=== PATIENT | female | born 1975 | race Caucasian/White ===

== ENCOUNTER 2021-12-25 17:35 | Outpatient (CLI) | payer OTHER, BC, SELFPAY | END 2021-12-25 17:36 | disposition home or self-care (01) | LOC: LKVREF 17:35 | PROVIDERS: PCP Physician Assistant Medical; Visit Provider Physician Assistant Medical | DX: Z00.00 Encounter for general adult medical examination without abnormal findings (principal); E78.5 Hyperlipidemia, unspecified; E03.9 Hypothyroidism, unspecified | CPT/HCPCS: 87624 ==

== ENCOUNTER 2021-12-29 08:52 | Outpatient (CLI) | payer OTHER, BC, SELFPAY ==
[2021-12-29 12:11] LABS: Albumin* 4.3 g/dL (3.3-5.0); Chloride* 105 mmol/L (96-114)
[2021-12-29 12:12] LABS: Potassium* 4.4 mmol/L (3.6-5.1); Sodium* 137 mmol/L (135-149)
[2021-12-29 12:14] LABS: Aspartate Amino Transferase* 22 U/L (12-35); Bilirubin Total* 0.6 mg/dL (0.1-1.5); Carbon Dioxide* 24 mmol/L (20-32); Creatinine* 0.6 mg/dL (0.5-1.5); Estimated Glomerular Filt Rate 111 ml/min; Total Protein* 7.2 g/dL (6.0-8.3)
[2021-12-29 12:15] LABS: Alanine Aminotransferase* 9 U/L (4-35); Alkaline Phosphatase* 55 U/L (40-150); Blood Urea Nitrogen* 10 mg/dL (5-24); Calcium* 9.5 mg/dL (8.4-10.6); Glucose* 96 mg/dL (60-115)
== END 2021-12-29 08:53 | disposition home or self-care (01) ==
LOC: LKVLAB 08:53
PROVIDERS: PCP Physician Assistant Medical; Visit Provider Physician Assistant Medical
DX: Z00.00 Encounter for general adult medical examination without abnormal findings (principal)
CPT/HCPCS: 36415; 80053; 84443

== ENCOUNTER 2022-02-13 18:42 | Outpatient (CLI) | payer OTHER, BC, SELFPAY ==
--- NOTE | 2022-02-13 19:00 | CRLHL7_ITS ---
For Patients: As a result of the Century Cures Act, medical imaging exams and procedure reports are released immediately into your electronic medical record. You may view this report before your referring provider. If you have questions, please contact your health care provider. BILATERAL SCREENING MAMMOGRAM WITH COMPUTER-AIDED DETECTION AND TOMOSYNTHESIS TECHNIQUE: CC and MLO views were obtained. These mammographic images have been obtained using full-field digital technique. These mammographic images were interpreted with the benefit of computer-aided detection. Breast Tomosynthesis was used in this interpretation. COMPARISON FILM: 12/05/20, 07/17/18, 01/14/17. FINDINGS: The breasts are heterogeneously dense, which may obscure small masses IMPRESSION: There is no radiographic evidence for malignancy. ASSESSMENT: BI-RADS Category 1: Negative RECOMMENDATION: Routine screening mammogram in 1 year. A lay language report of this examination will be provided to the patient. Juancho León M.D. Diagnostic Radiologist [email or web address] RENARD/Dictated by: Juancho León MD @ 02/14/2022 8:09:00 AM (Electronically Signed)
== END 2022-02-13 18:43 | disposition home or self-care (01) ==
LOC: MAMMO 18:42
PROVIDERS: PCP Physician Assistant Medical; Visit Provider Physician Assistant Medical
DX: Z12.31 Encounter for screening mammogram for malignant neoplasm of breast (principal); R92.8 Other abnormal and inconclusive findings on diagnostic imaging of breast; R92.2 Inconclusive mammogram
CPT/HCPCS: 77063; 77067

== ENCOUNTER 2023-01-22 08:31 | Outpatient (CLI) | payer OTHER, BC, SELFPAY | END 2023-01-22 08:32 | disposition home or self-care (01) | LOC: NFLDREF 01-25 20:24 | PROVIDERS: PCP Physician Assistant Medical; Referring Provider Physician Assistant Medical; Visit Provider Physician Assistant Medical | DX: Z00.00 Encounter for general adult medical examination without abnormal findings (principal); E78.5 Hyperlipidemia, unspecified; E03.9 Hypothyroidism, unspecified; F41.9 Anxiety disorder, unspecified; Z13.1 Encounter for screening for diabetes mellitus | CPT/HCPCS: 80061; 80076; 82947; 84443 ==

== ENCOUNTER 2023-08-12 14:53 | Outpatient (CLI) | payer OTHER, BC, SELFPAY ==
--- NOTE | 2023-08-12 15:00 | MM_ITS ---
Patient: FABI VARGAS Facility:?[facility] Patient ID:?[id number] Site Patient ID:?[id number]. Site :?[id number] Study:?XRay-Breast Bilateral 3D W/CAD-08/12/2023 3:41:31 PM Ordering Physician:Patria Final Report: BILATERAL SCREENING MAMMOGRAM WITH COMPUTER-AIDED DETECTION AND TOMOSYNTHESIS TECHNIQUE: CC and MLO views were obtained. These mammographic images have been obtained using full-field digital technique. These mammographic images were interpreted with the benefit of computer-aided detection. Breast Tomosynthesis was used in this interpretation. COMPARISON FILM: 02/13/22, 12/05/20, 07/17/18. FINDINGS: There are scattered areas of fibroglandular density IMPRESSION: There is no radiographic evidence for malignancy. ASSESSMENT: BI-RADS Category 1: Negative RECOMMENDATION: Routine screening mammogram in 1 year. A lay language report of this examination will be provided to the patient. Juancho León M.D. Diagnostic Radiologist [email or web address] ROCKY/garcía / be/Dictated by: Juancho León MD @ 08/13/2023 11:32:00 AM Signed by:?Juancho León MD @08/13/2023 4:21:05 PM (Electronic Signature)
== END 2023-08-12 14:54 | disposition home or self-care (01) ==
LOC: MAMMO 14:56
PROVIDERS: PCP Physician Assistant Medical; Visit Provider Physician Assistant Medical
DX: Z12.31 Encounter for screening mammogram for malignant neoplasm of breast (principal)
CPT/HCPCS: 77063; 77067

== ENCOUNTER 2024-01-23 08:02 | Outpatient (CLI) | payer OTHER, BC, SELFPAY | END 2024-01-23 08:03 | disposition home or self-care (01) | LOC: NFLDREF 01-25 18:15 | PROVIDERS: PCP Physician Assistant Medical; Referring Provider Physician Assistant Medical; Visit Provider Physician Assistant Medical | DX: Z00.00 Encounter for general adult medical examination without abnormal findings (principal); E78.5 Hyperlipidemia, unspecified; E03.9 Hypothyroidism, unspecified | CPT/HCPCS: 80053; 80061; 84443 ==